=== PATIENT | female | born 1960 | race Caucasian/White ===

== ENCOUNTER 2017-10-07 08:19 | Emergency (ER) | payer OTHER ==
[~2017-10-07] VITALS: Ht 160 cm; Wt 100.2 kg
[~2017-10-07 08:19] MED LIST: Calcium Carbonate,Ca PO; Flonase NS; Lexapro PO; Motrin PO; Percocet 5/325,Endoc PO; PriLOSEC PO; Wellbutrin SR PO
[2017-10-07 13:26] VITALS: BP 125/71
== END 2017-10-07 13:26 | disposition home or self-care (01) ==
LOC: EME 08:19
DX: M70.52 Other bursitis of knee, left knee (principal); S80.02XA Contusion of left knee, initial encounter; W17.89XA Other fall from one level to another, initial encounter
CPT/HCPCS: 73564; 93971; 99281; 99284

== ENCOUNTER → 2018-02-04 | Outpatient (CLI) | payer OTHER | END | disposition home or self-care (01) | LOC: NUC 09:00 | DX: R10.11 Right upper quadrant pain (principal) | CPT/HCPCS: 78226; A9537 ==